=== PATIENT | female | born 1980 | race Caucasian/White ===

== ENCOUNTER → 2020-04-25 | Emergency (ER) | payer BC ==
[~2020-04-25] VITALS: Ht 165.1 cm; Wt 97.5 kg
[~2020-04-25] MED LIST: ADVAIR 100-501 EACH INH; APAP W/CODEINE1 TA2 PO; FLEXERIL PO; MEDROLDOSEPACK PO; PREDNISONE10 MG PO; SPIRONOLACTONE25 MG PO; SYNTHROID25 MC1 PO; WELLBUTRIN 75 M75 M1 PO; XANAX 0.25 MG0.25 MG PO; ZYRTEC10 M5 PO
[2020-04-25 16:45] VITALS: BP 150/84
== END ==
LOC: M.ERS 16:30
DX: S16.1XXA Strain of muscle, fascia and tendon at neck level, initial encounter (principal); M54.5 Low back pain; J45.909 Unspecified asthma, uncomplicated; Z90.49 Acquired absence of other specified parts of digestive tract; V89.2XXA Person injured in unspecified motor-vehicle accident, traffic, initial encounter; Y93.89 Activity, other specified; Y92.89 Other specified places as the place of occurrence of the external cause; Y99.8 Other external cause status